=== PATIENT | female | born 1935 | race Two or more races ===

== ENCOUNTER → 2019-04-17 | Outpatient (CLI) | payer OTHER | END | disposition home or self-care (01) | LOC: RAD 13:55 | DX: J45.31 Mild persistent asthma with (acute) exacerbation (principal) ==

== ENCOUNTER 2020-02-21 00:34 | Inpatient (IN) | payer OTHER ==
[~2020-02-21] VITALS: Ht 152.4 cm; Wt 81.6 kg
--- NOTE | 2020-02-21 00:57 | NUR ---
PTE SE RECIBE POR ABDOMINAL PAIN STEFNAI Y VOMITOS REFIERE PTE.
--- NOTE | 2020-02-21 01:54 | NUR ---
PTE ALERTA Y ORIENTADA X3, CON BUEN PATRON RESPIRATORIO Y SIGNOS VITALES ESTABLES, SE CANALIZA EN BRAZO DERECHO PATENTE Y ELIZABET DE EDEMA, SE MAURIZIO MUESTRAS BAJO MEDIDAS ASEPTICAS Y SE ADMINISTRAN MEDICAMENTOS ONEAL ORDENADOS. SE COURTNEY TRANQUILA EN ANGELIQUE CON BARANDAS ELEVADAS Y FRENOS COLOCADOS.
--- NOTE | 2020-02-21 07:46 | NUR ---
SE RECIBE PTE ALERTA Y ORIENTADA POR 3 LA CUAL SE ENUCENTRA CON AREA DE VENOPUNCION PATENTE Y ELIZABET DE EDEMA PTE SE ENCUENTRA EN ESPERA DE CT PO AT 7:53AM.
[2020-02-27] MEDS ORDERED: SURFAK240 M1 PO (12:51)
[2020-02-27] MEDS ORDERED: NORVASC5 MG PO (12:51)
[2020-02-27] MEDS ORDERED: ULTRACET PO (12:51)
[2020-02-27] MEDS ORDERED: KEFLEX500 MG PO (12:51)
[2020-02-27] MEDS ORDERED: LOPRESSOR25 MG PO (12:51)
[2020-02-27] MEDS ORDERED: ZESTRIL40 M1 PO (12:51)
[2020-02-27] MEDS ORDERED: PROTONIX40 MG PO (12:51)
== END 2020-02-27 15:05 | disposition home or self-care (01) | DRG 337 ==
LOC: ER 00:34 → SURH 09:27 → SEC-K 09:27 → SURH 11:50
PROVIDERS: ADMIT Surgery; ATTEND Surgery
PROC: BW21ZZZ Computerized Tomography (CT Scan) of Abdomen and Pelvis (ICD-10-PCS; 2020-02-21)
PROC: B246ZZZ Ultrasonography of Right and Left Heart (ICD-10-PCS; 2020-02-21)
PROC: 4A033R1 Measurement of Arterial Saturation, Peripheral, Percutaneous Approach (ICD-10-PCS; 2020-02-21)
PROC: 3E0F7GC Introduction of Other Therapeutic Substance into Respiratory Tract, Via Natural or Artificial Opening (ICD-10-PCS; 2020-02-21)
PROC: 4A12X4Z Monitoring of Cardiac Electrical Activity, External Approach (ICD-10-PCS; 2020-02-23)
PROC: 0WQF0ZZ Repair Abdominal Wall, Open Approach (ICD-10-PCS; 2020-02-24)
PROC: 0DN80ZZ Release Small Intestine, Open Approach (ICD-10-PCS; principal; 2020-02-24 09:45)
DX: K43.0 Incisional hernia with obstruction, without gangrene (principal); Z20.828 Contact with and (suspected) exposure to other viral communicable diseases; J45.909 Unspecified asthma, uncomplicated; E11.65 Type 2 diabetes mellitus with hyperglycemia; J44.9 Chronic obstructive pulmonary disease, unspecified; Z95.4 Presence of other heart-valve replacement; Z95.1 Presence of aortocoronary bypass graft; K66.0 Peritoneal adhesions (postprocedural) (postinfection); Z79.01 Long term (current) use of anticoagulants

== ENCOUNTER 2021-05-17 10:41 | Outpatient (CLI) | payer OTHER ==
[~2021-05-17 10:41] MED LIST: KEFLEX500 MG PO; LOPRESSOR25 MG PO; NORVASC5 MG PO; PROTONIX40 MG PO; SURFAK240 M1 PO; ULTRACET PO; ZESTRIL40 M1 PO
== END 2021-05-17 10:50 | disposition home or self-care (01) ==
LOC: RAD 10:41
PROVIDERS: ATTEND General Practice
DX: I10 Essential (primary) hypertension (principal); I25.10 Atherosclerotic heart disease of native coronary artery without angina pectoris

== ENCOUNTER 2021-05-18 08:11 | Outpatient (CLI) | payer OTHER | END 2021-05-18 08:18 | disposition home or self-care (01) | LOC: SONOGRAMA 08:11 | PROVIDERS: ATTEND Internal Medicine Cardiovascular Disease | DX: K80.80 Other cholelithiasis without obstruction (principal); R10.84 Generalized abdominal pain ==

== ENCOUNTER 2024-02-24 17:08 | Emergency (ER) | payer OTHER ==
[~2024-02-24] VITALS: Ht 152.4 cm; Wt 70.3 kg
[2024-02-24] MEDS ORDERED: ELIQUIS2.5 MG PO (17:22)
[2024-02-24] MEDS ORDERED: ORPHENADRINE CITRATE 30 MG/ML AMPUL IM STA (20:14)
== END 2024-02-24 22:19 | disposition home or self-care (01) ==
LOC: ER 17:08
DX: S39.82XA Other specified injuries of lower back, initial encounter (principal); W18.39XA Other fall on same level, initial encounter; Y93.89 Activity, other specified; Y92.018 Other place in single-family (private) house as the place of occurrence of the external cause
CPT/HCPCS: 72100; 96372; 99283; J2360

== ENCOUNTER 2024-06-25 05:25 | Inpatient (IN) | payer OTHER ==
[~2024-06-25] VITALS: Ht 152.4 cm; Wt 77.1 kg
[~2024-06-25 05:25] MED LIST changes: +ELIQUIS2.5 MG PO
[2024-06-25] MEDS ORDERED: 0.9 % SODIUM CHLORIDE 1,000 ML IV STA (06:16)
[2024-06-25] MEDS ORDERED: MEPERIDINE HCL/PF 25 MG/ML VIAL IM STA (06:17)
[2024-06-25] MEDS ORDERED: PROMETHAZINE HCL 25 MG/ML AMPUL IM STA (06:17)
[2024-06-25] MEDS ORDERED: ONDANSETRON HCL 2 MG/ML VIAL IV STA (06:18)
[2024-06-25] MEDS ORDERED: FAMOtidine 10 MG/ML (4ML VIAL) IV PUSH STA (06:18)
[2024-06-25] MEDS ORDERED: HYOSCYAMINE SULFATE 0.125 MG TAB.SUBL ONE (06:22)
[2024-06-25] MEDS ORDERED: ONDANSETRON HCL 2 MG/ML VIAL ONE (06:22)
[2024-06-25] MEDS ORDERED: FAMOTIDINE/PF 20 MG/2 ML VIAL ONE ×2 (06:23→15:28)
[2024-06-25] MEDS ORDERED: PROMETHAZINE HCL 25 MG/ML AMPUL ONE (06:23)
[2024-06-25] MEDS ORDERED: HYOSCYAMINE SULFATE 0.125 MG TAB.SUBL SL ONE (06:30)
[2024-06-25 07:02] LABS: HEMATOCRIT 44.2 % (36.0-45.00); HEMOGLOBIN 14.6 g/dL (12.0-15.00); MEAN CELL VOLUME 93.7 fL (80.00-100.00); MEAN CORPUSCULAR HEMOGLOBIN 30.9 pg (27.00-32.0); PLATELET COUNT 260 K/uL (150-450); RED BLOOD COUNT 4.72 M/uL (4.00-6.00); RED CELL DISTRIBUTION WIDTH 13.5 % (11.5-14.5)
[2024-06-25 07:19] LABS: ALBUMIN 3.8 gm/dL (3.4-5.0); BILIRUBIN TOTAL 0.5 mg/dL (0.3-1.2); CALCIUM 9.9 mg/dL (8.5-10.1); CREATININE SERUM 1.07 mg/dL (0.55-1.02); GFR 48.28; GLOBULINA 4.2 G/DL (2.4-3.5); POTASSIUM 3.86 mEq/L (3.5-5.1)
[2024-06-25 07:28] LABS: INR 0.97; PARTIAL THROMBOPLASTIN TIME 26.8 SECONDS (22.0-34.0); PROTHROMBIN TIME 10.6 SECONDS (9.0-11.5)
[2024-06-25] MEDS ORDERED: METHYLPREDNISOLONE SOD SUCC 40 MG VIAL IV ONE (08:45)
[2024-06-25] MEDS ORDERED: METHYLPREDNISOLONE SOD SUCC 40 MG VIAL ONE (08:57)
[2024-06-25 09:48] LABS: PH,URINE 7.5 (5.0-8.0); URINE APPEARANCE Clear; URINE BILIRRUBIN Negative (NEGATIVE); URINE BLOOD Negative; URINE COLOR Yellow; URINE GLUCOSE Negative (NEGATIVE); URINE KETONE Negative (NEGATIVE); URINE LEUKOCYTE Trace; URINE NITRATE Negative
[2024-06-25 09:52] LABS: URINE BACTERIA 210.5 uL (0.0-1933); URINE EPITHELIAL CELLS 13.2 uL (0.0-38.8); URINE RBC 5.8 uL (0.0-20.8); URINE WBC 26.7 uL (0.0-23.2)
[2024-06-25 10:09] LABS: URINE PROTEIN 100 (NEGATIVE)
[2024-06-25] MEDS ORDERED: METRONIDAZOLE/SODIUM CHLORIDE 500 MG/100 ML PIGGYBACK IV ONE ×2 (12:15→12:31)
[2024-06-25] MEDS ORDERED: LIDOCAINE HCL VISCOUS 20MG/ML BLIST 15ML MM ONE (12:31)
[2024-06-25] MEDS ORDERED: PIPERACILLIN/TAZOBACTAM SODIUM 3.375 GM in 0.9 % SODIUM CHLORIDE 100 ML IV SCH (14:40)
[2024-06-25] MEDS ORDERED: FAMOTIDINE/PF 20 MG in 0.9 % SODIUM CHLORIDE 8 ML IV PUSH SCH (14:41)
[2024-06-25] MEDS ORDERED: MEPERIDINE HCL/PF 50 MG/ML VIAL IM PRN (14:45)
[2024-06-25] MEDS ORDERED: INSULIN LISPRO 1,000 UNIT/10 ML UNITS SUBCUTANEO PRN (14:45)
[2024-06-25] MEDS ORDERED: DEXTROSE 50 % IN WATER 0.5 G/ML DISP.SYRIN IV PRN (14:45)
[2024-06-25] MEDS ORDERED: 0.9 % SODIUM CHLORIDE 1,000 ML IV SCH (14:45)
[2024-06-25] MEDS ORDERED: hydrALAZINE HCL 20 MG VIAL IV PRN (15:00)
[2024-06-25] MEDS ORDERED: hydrALAZINE HCL 20 MG VIAL ONE (15:28)
[2024-06-25] MEDS ORDERED: PIPERACILLIN/TAZOBACTAM SODIUM 3.375 GM VIAL IV ONE (15:28)
[2024-06-25 15:55] VITALS: BP 196/90; O2SAT 95
[2024-06-25 16:29] LABS: INR 0.97; PARTIAL THROMBOPLASTIN TIME 26.8 SECONDS (22.0-34.0); PROTHROMBIN TIME 10.6 SECONDS (9.0-11.5)
[2024-06-25 18:25] VITALS: BP 154/70; O2SAT 97
[2024-06-26 08:00] VITALS: BP 152/73; O2SAT 95
[2024-06-26 11:23] VITALS: O2SAT 93
[2024-06-26] MEDS ORDERED: DIATRIZOATE MEGLUMINE, SODIUM 30 ML BOTTLE PO NR (13:15)
[2024-06-26] MEDS ORDERED: MINERAL OIL 133 ML ENEMA RECTAL NR (13:15)
[2024-06-26] MEDS ORDERED: ONDANSETRON HCL 2 MG/ML VIAL IV PRN (13:15)
[2024-06-26 13:46] VITALS: O2SAT 94
[2024-06-26] MEDS ORDERED: MEPERIDINE HCL/PF 25 MG/ML VIAL IM PRN (13:46)
[2024-06-26] MEDS ORDERED: ENOXAPARIN SODIUM 80 MG/0.8 ML SYRINGE SUBCUTANEO SCH (13:46)
[2024-06-26 16:00] VITALS: BP 189/65; O2SAT 96
[2024-06-27] VITALS (9 sets, daily range): BP systolic 125–180; BP diastolic 63–74; O2SAT 91–99
[2024-06-27 10:30] LABS: URINE BACTERIA 646.2 uL (0.0-1933); URINE EPITHELIAL CELLS 11.8 uL (0.0-38.8); URINE RBC 30.9 uL (0.0-20.8); URINE WBC 34.3 uL (0.0-23.2)
[2024-06-27 10:36] LABS: URINE APPEARANCE Clear; URINE BILIRRUBIN Negative (NEGATIVE); URINE BLOOD Negative; URINE COLOR Yellow; URINE GLUCOSE Negative (NEGATIVE); URINE KETONE Trace (NEGATIVE); URINE LEUKOCYTE Trace; URINE NITRATE Negative; URINE PROTEIN Trace (NEGATIVE)
[2024-06-27 11:12] LABS: URINE CAST 0.14 uL (0.0-1.40)
[2024-06-27] MEDS ORDERED: DILTIAZEM HCL 125MG/25ML VIAL IV STA (11:17)
[2024-06-27] MEDS ORDERED: DILTIAZEM HCL 125 MG in 0.9 % SODIUM CHLORIDE 100 ML IV SCH (11:30)
[2024-06-27 11:49] LABS: HEMATOCRIT 45.8 % (36.0-45.00); HEMOGLOBIN 14.7 g/dL (12.0-15.00); MEAN CELL VOLUME 95.5 fL (80.00-100.00); MEAN CORPUSCULAR HEMOGLOBIN 30.7 pg (27.00-32.0); MEAN CORPUSCULAR HGB CONC 32.1 g/dl (32.0-36.0); PLATELET COUNT 251 K/uL (150-450); RED CELL DISTRIBUTION WIDTH 14.1 % (11.5-14.5)
[2024-06-27 12:28] LABS: ALBUMIN 3.5 gm/dL (3.4-5.0); BILIRUBIN TOTAL 0.97 mg/dL (0.3-1.2); CALCIUM 8.8 mg/dL (8.5-10.1); CREATININE SERUM 1.03 mg/dL (0.55-1.02); GFR 50.45; GLOBULINA 3.5 G/DL (2.4-3.5); PHOSPHOROUS 3.1 mg/dL (2.5-4.9); POTASSIUM 3.8 mEq/L (3.5-5.1)
[2024-06-27] MEDS ORDERED: GABAPENTIN 300 MG CAPSULE PO SCH (17:00)
[2024-06-27] MEDS ORDERED: FUROsemide 20 MG/2 ML VIAL IV SCH (17:26)
[2024-06-27 17:38] LABS: ABG PH 7.384 (7.35-7.45); BASE EXCESS -0.6 mmol/l; BICARBONATE 24.5 mmol/l (23-25); SaO2 92.9 %; Tco2 25.8 mmol/l
[2024-06-27 17:39] LABS: allen test SATISFACTORY; o2 21 %; puncture site BRADIAL RIGHT
[2024-06-27] MEDS ORDERED: ACETAMINOPHEN 500 MG GEL..CAP PO SCH (18:00)
[2024-06-28] VITALS (9 sets, daily range): BP systolic 103–144; BP diastolic 55–63; O2SAT 90–98
[2024-06-28] MEDS ORDERED: METOPROLOL TARTRATE 25 MG TABLET PO SCH (11:28)
[2024-06-28] MEDS ORDERED: AMIODARONE HCL 200 MG TABLET PO NR (12:00)
[2024-06-28 13:31] LABS: HEMATOCRIT 43.4 % (36.0-45.00); HEMOGLOBIN 14.6 g/dL (12.0-15.00); MEAN CELL VOLUME 93.2 fL (80.00-100.00); MEAN CORPUSCULAR HEMOGLOBIN 31.5 pg (27.00-32.0); MEAN CORPUSCULAR HGB CONC 33.7 g/dl (32.0-36.0); PLATELET COUNT 235 K/uL (150-450); RED BLOOD COUNT 4.66 M/uL (4.00-6.00); RED CELL DISTRIBUTION WIDTH 14.1 % (11.5-14.5)
[2024-06-29] VITALS (9 sets, daily range): BP systolic 104–170; BP diastolic 67–76; O2SAT 92–98
[2024-06-29] MEDS ORDERED: APIXABAN 2.5 MG TABLET PO SCH (09:00)
[2024-06-29] MEDS ORDERED: AMIODARONE HCL 200 MG TABLET PO SCH (09:00)
[2024-06-30] VITALS (7 sets, daily range): BP systolic 145–155; BP diastolic 66–76; O2SAT 92–96
[2024-07-01] VITALS (21 sets, daily range): BP systolic 123–214; BP diastolic 53–89; O2SAT 94–100
[2024-07-01 06:42] LABS: HEMATOCRIT 41.4 % (36.0-45.00); HEMOGLOBIN 13.7 g/dL (12.0-15.00); MEAN CORPUSCULAR HEMOGLOBIN 31.2 pg (27.00-32.0); MEAN CORPUSCULAR HGB CONC 33.2 g/dl (32.0-36.0); PLATELET COUNT 183 K/uL (150-450); RED BLOOD COUNT 4.41 M/uL (4.00-6.00); RED CELL DISTRIBUTION WIDTH 13.3 % (11.5-14.5)
[2024-07-01 07:12] LABS: CALCIUM 9.1 mg/dL (8.5-10.1); CREATININE SERUM 1.03 mg/dL (0.55-1.02); GFR 50.45; POTASSIUM 4.73 mEq/L (3.5-5.1)
[2024-07-01] MEDS ORDERED: CLEVIDIPINE BUTYRATE 100 ML IV SCH (10:15)
[2024-07-01] MEDS ORDERED: hydrALAZINE HCL 50 MG TABLET PO SCH (13:02)
[2024-07-01] MEDS ORDERED: AMLODIPINE BESYLATE 5 MG TABLET PO SCH (17:00)
[2024-07-02] VITALS (10 sets, daily range): BP systolic 119–152; BP diastolic 53–61; O2SAT 96–100
[2024-07-02] MEDS ORDERED: PIPERACILLIN/TAZOBACTAM SODIUM 3.375 GM VIAL IV ONE (07:44)
[2024-07-02] MEDS ORDERED: SODIUM CHLORIDE 0.45 % 1,000 ML IV SCH (16:45)
[2024-07-02] MEDS ORDERED: PANTOPRAZOLE SODIUM 80 MG in 0.9 % SODIUM CHLORIDE 100 ML IV SCH (18:00)
[2024-07-03] VITALS (9 sets, daily range): BP systolic 115–155; BP diastolic 54–63; O2SAT 91–100
[2024-07-03 06:40] LABS: ALBUMIN 2.6 gm/dL (3.4-5.0); BILIRUBIN TOTAL 0.37 mg/dL (0.3-1.2); CALCIUM 8.5 mg/dL (8.5-10.1); CREATININE SERUM 1.07 mg/dL (0.55-1.02); GFR 48.28; GLOBULINA 2.8 G/DL (2.4-3.5); MAGNESIUM 1.6 mg/dL (1.8-2.4); PHOSPHOROUS 3.3 mg/dL (2.5-4.9); TOTAL PROTEIN 5.4 gm/dL (6.4-8.2)
[2024-07-03 06:46] LABS: POTASSIUM 2.98 mEq/L (3.5-5.1)
[2024-07-03] MEDS ORDERED: hydrALAZINE HCL 50 MG TABLET PO SCH (09:00)
[2024-07-03] MEDS ORDERED: MAGNESIUM SULFATE IN WATER 50 ML IV NR (10:00)
[2024-07-03] MEDS ORDERED: POTASSIUM CHLORIDE IN WATER 40 MEQ/100 ML PIGGYBAG IV SCH (12:00)
[2024-07-03 13:31] LABS: PH,URINE 6.5 (5.0-8.0); URINE APPEARANCE Clear; URINE BILIRRUBIN Negative (NEGATIVE); URINE BLOOD Negative; URINE COLOR Yellow; URINE GLUCOSE Negative (NEGATIVE); URINE KETONE Negative (NEGATIVE); URINE LEUKOCYTE Negative; URINE NITRATE Negative; URINE PROTEIN Negative (NEGATIVE); URINE UROBILINOGEN 0.2 E.U./dl
[2024-07-03 13:32] LABS: URINE BACTERIA 56.1 uL (0.0-1933); URINE EPITHELIAL CELLS 146.9 uL (0.0-38.8)
[2024-07-03 13:38] LABS: URINE RBC 1.4 uL (0.0-20.8)
[2024-07-04] VITALS (10 sets, daily range): BP systolic 140–154; BP diastolic 53–62; O2SAT 94–99
[2024-07-04 06:42] LABS: ALBUMIN 2.4 gm/dL (3.4-5.0); BILIRUBIN TOTAL 0.32 mg/dL (0.3-1.2); CALCIUM 8.1 mg/dL (8.5-10.1); CREATININE SERUM 0.83 mg/dL (0.55-1.02); GFR 64.73; GLOBULINA 2.8 G/DL (2.4-3.5); POTASSIUM 3.73 mEq/L (3.5-5.1); TOTAL PROTEIN 5.2 gm/dL (6.4-8.2)
[2024-07-04] MEDS ORDERED: CHOLESTYRAMINE/ASPARTAME LIGHT 4 G/PKT PACKET PO PRN (13:15)
[2024-07-04] MEDS ORDERED: SODIUM CHLORIDE 0.45 % 1,000 ML IV SCH (13:15)
[2024-07-04] MEDS ORDERED: CHOLESTYRAMINE/ASPARTAME LIGHT 4 G/PKT PACKET PO STA (13:41)
[2024-07-05] VITALS (9 sets, daily range): BP systolic 143–160; BP diastolic 55–60; O2SAT 84–99
[2024-07-05] MEDS ORDERED: DILTIAZEM HCL 125 MG in 0.9 % SODIUM CHLORIDE 100 ML IV SCH (09:45)
[2024-07-05] MEDS ORDERED: METOPROLOL TARTRATE 25 MG TABLET PO SCH (17:00)
[2024-07-05] MEDS ORDERED: ONDANSETRON HCL 2 MG/ML VIAL IV PRN (19:30)
[2024-07-05] MEDS ORDERED: ONDANSETRON HCL 2 MG/ML VIAL IV STA (19:41)
[2024-07-05] MEDS ORDERED: SIMETHICONE 125 MG CAPSULE PO PRN (19:45)
[2024-07-06] VITALS (12 sets, daily range): BP systolic 140–157; BP diastolic 52–61; O2SAT 90–98
[2024-07-06 07:34] LABS: HEMATOCRIT 34.3 % (36.0-45.00); HEMOGLOBIN 11.3 g/dL (12.0-15.00); MEAN CELL VOLUME 95.7 fL (80.00-100.00); MEAN CORPUSCULAR HEMOGLOBIN 31.4 pg (27.00-32.0); MEAN CORPUSCULAR HGB CONC 32.8 g/dl (32.0-36.0); PLATELET COUNT 199 K/uL (150-450); RED BLOOD COUNT 3.58 M/uL (4.00-6.00); RED CELL DISTRIBUTION WIDTH 14.1 % (11.5-14.5)
[2024-07-06 08:19] LABS: CALCIUM 8.6 mg/dL (8.5-10.1); CREATININE SERUM 1.17 mg/dL (0.55-1.02); GFR 43.55; PHOSPHOROUS 3.8 mg/dL (2.5-4.9); POTASSIUM 4.6 mEq/L (3.5-5.1); T4 TOTAL 9.13 UG/DL (4.8-13.9); TSH 0.358 uIU/mL (0.358-3.74)
[2024-07-06] MEDS ORDERED: PANTOPRAZOLE SODIUM 40 MG/VIAL VIAL IV SCH (09:00)
[2024-07-06] MEDS ORDERED: AMIODARONE HCL 200 MG TABLET PO SCH (09:00)
[2024-07-06] MEDS ORDERED: CEFEPIME HCL 2,000 MG VIAL IV STA (11:03)
[2024-07-06] MEDS ORDERED: FLUCONAZOLE IN NACL,ISO-OSM 200 MG/100 ML PIGGYBAG IV STA (11:04)
[2024-07-06] MEDS ORDERED: MEROPENEM 500 MG/VIAL VIAL IV STA (11:47)
[2024-07-06] MEDS ORDERED: LINEZOLID IN DEXTROSE 5% 600 MG/300 ML PIGGYBAG IV STA (11:48)
[2024-07-06] MEDS ORDERED: DIATRIZOATE MEGLUMINE, SODIUM 30 ML BOTTLE PO NR (12:45)
[2024-07-06] MEDS ORDERED: EMOLLIENT COMBINATION NO.92 2.5 OZ BOTTLE TOP SCH (13:00)
[2024-07-06] MEDS ORDERED: EMOLLIENTS 6 OZ BOTTLE TOP SCH (13:00)
[2024-07-06] MEDS ORDERED: CEFEPIME HCL 2,000 MG VIAL IV SCH (17:00)
[2024-07-06] MEDS ORDERED: MEROPENEM 500 MG/VIAL VIAL IV SCH (17:00)
[2024-07-06 20:23] LABS: ABG PH 7.207 (7.35-7.45)
[2024-07-06 20:24] LABS: ABG PO2 53.6 mmHg (80-100); ABG pCO2 71.3 mmHg (35-45); BASE EXCESS -2.2 mmol/l
[2024-07-06 20:25] LABS: BICARBONATE 27.7 mmol/l (23-25); Tco2 29.9 mmol/l; allen test SATISFACTORY; o2 32 %; puncture site RADIAL RIGHT
[2024-07-06 20:26] LABS: SaO2 78.6 %
[2024-07-06] MEDS ORDERED: LEVALBUTEROL HCL 0.63 MG/3 ML SOLUTION IH SCH (21:00)
[2024-07-06] MEDS ORDERED: LINEZOLID IN DEXTROSE 5% 600 MG/300 ML PIGGYBAG IV SCH (21:00)
[2024-07-06 21:46] LABS: ABG PH 7.241 (7.35-7.45); ABG pCO2 64.1 mmHg (35-45)
[2024-07-06 21:47] LABS: ABG PO2 71.8 mmHg (80-100); BICARBONATE 26.9 mmol/l (23-25); SaO2 90.6 %; Tco2 28.9 mmol/l; allen test SATISFACTORY; o2 100 %; puncture site RADIAL LEFT
[2024-07-07 05:50] LABS: ALBUMIN 2.3 gm/dL (3.4-5.0); BILIRUBIN TOTAL 0.5 mg/dL (0.3-1.2); CALCIUM 8.7 mg/dL (8.5-10.1); CREATININE SERUM 1.52 mg/dL (0.55-1.02); GFR 32.2; GLOBULINA 3.9 G/DL (2.4-3.5); POTASSIUM 4.62 mEq/L (3.5-5.1); TOTAL PROTEIN 6.2 gm/dL (6.4-8.2)
[2024-07-07 06:11] LABS: C-REACTIVE PROTEIN 18.2 MG/DL (0.00-0.29)
[2024-07-07] MEDS ORDERED: DIATRIZOATE MEGLUMINE, SODIUM 30 ML BOTTLE PO NR (07:00)
[2024-07-07 07:11] VITALS: BP 160/51; O2SAT 96
[2024-07-07] MEDS ORDERED: FLUCONAZOLE IN NACL,ISO-OSM 200 MG/100 ML PIGGYBAG IV SCH (09:00)
[2024-07-07] MEDS ORDERED: CHLORHEXIDINE GLUCONATE 120 ML BOTTLE TOP ONE (10:05)
[2024-07-07 10:26] LABS: ABG PH 7.261 (7.35-7.45); ABG PO2 91.9 mmHg (80-100); BASE EXCESS -1.9 mmol/l; BICARBONATE 26.5 mmol/l (23-25); SaO2 95.4 %; Tco2 28.3 mmol/l
[2024-07-07 12:17] VITALS: BP 159/51; O2SAT 98
[2024-07-07 12:22] VITALS: BP 147/56
[2024-07-07 13:37] LABS: HEMATOCRIT 32.3 % (36.0-45.00); HEMOGLOBIN 10.4 g/dL (12.0-15.00); MEAN CELL VOLUME 95.6 fL (80.00-100.00); MEAN CORPUSCULAR HEMOGLOBIN 30.6 pg (27.00-32.0); MEAN CORPUSCULAR HGB CONC 32.1 g/dl (32.0-36.0); PLATELET COUNT 146 K/uL (150-450); RED BLOOD COUNT 3.38 M/uL (4.00-6.00); RED CELL DISTRIBUTION WIDTH 14.1 % (11.5-14.5)
[2024-07-07 15:21] VITALS: BP 147/46; BP 148/52; O2SAT 97
[2024-07-07 15:33] LABS: ABG pCO2 60.3 mmHg (35-45); o2 100 %; puncture site RADIAL RIGHT
[2024-07-07 15:34] LABS: allen test SATISFACTORY
[2024-07-07 19:59] VITALS: BP 143/53; O2SAT 96
[2024-07-07 23:38] VITALS: BP 159/50; O2SAT 97
[2024-07-08 06:49] LABS: HEMATOCRIT 31.5 % (36.0-45.00); HEMOGLOBIN 10.3 g/dL (12.0-15.00); MEAN CORPUSCULAR HGB CONC 32.6 g/dl (32.0-36.0); PLATELET COUNT 153 K/uL (150-450); RED BLOOD COUNT 3.32 M/uL (4.00-6.00); RED CELL DISTRIBUTION WIDTH 14.2 % (11.5-14.5)
[2024-07-08 07:14] VITALS: BP 135/78; O2SAT 98
[2024-07-08 07:34] LABS: BILIRUBIN TOTAL 0.43 mg/dL (0.3-1.2); CALCIUM 8.4 mg/dL (8.5-10.1); CREATININE SERUM 1.53 mg/dL (0.55-1.02); GFR 31.96; GLOBULINA 3.8 G/DL (2.4-3.5); MAGNESIUM 2.1 mg/dL (1.8-2.4); PHOSPHOROUS 3.9 mg/dL (2.5-4.9); POTASSIUM 4.25 mEq/L (3.5-5.1); TOTAL PROTEIN 5.8 gm/dL (6.4-8.2)
[2024-07-08] MEDS ORDERED: FUROsemide 20 MG/2 ML VIAL IV SCH (09:00)
[2024-07-08] MEDS ORDERED: DIATRIZOATE MEGLUMINE, SODIUM 30 ML BOTTLE PO NR (12:00)
[2024-07-08 12:09] VITALS: BP 147/57; O2SAT 95
[2024-07-08] MEDS ORDERED: POLYVINYL ALCOHOL 15 ML DROPS OP SCH (13:00)
[2024-07-08 15:06] VITALS: BP 132/67; O2SAT 96
[2024-07-08 15:19] LABS: ABG PH 7.278 (7.35-7.45)
[2024-07-08 15:20] LABS: ABG PO2 138.7 mmHg (80-100); BASE EXCESS -1.4 mmol/l; BICARBONATE 26.5 mmol/l (23-25); SaO2 98.7 %; Tco2 28.3 mmol/l; allen test SATISFACTORY; o2 100 %; puncture site RADIAL LEFT
[2024-07-08] MEDS ORDERED: ACETAMINOPHEN 500 MG GEL..CAP PO PRN (16:30)
[2024-07-08] MEDS ORDERED: PETROLATUM,WHITE 85 GM OINT...G. TOP SCH (17:00)
[2024-07-08 20:00] VITALS: BP 106/64; O2SAT 96
[2024-07-08 23:32] VITALS: BP 106/64; O2SAT 97
[2024-07-09 04:04] VITALS: BP 108/54; O2SAT 97
[2024-07-09 07:42] LABS: HEMATOCRIT 30.4 % (36.0-45.00); HEMOGLOBIN 10.5 g/dL (12.0-15.00); MEAN CELL VOLUME 92.3 fL (80.00-100.00); MEAN CORPUSCULAR HEMOGLOBIN 31.8 pg (27.00-32.0); MEAN CORPUSCULAR HGB CONC 34.4 g/dl (32.0-36.0); PLATELET COUNT 186 K/uL (150-450); RED CELL DISTRIBUTION WIDTH 13.8 % (11.5-14.5)
[2024-07-09 08:14] LABS: CALCIUM 8.7 mg/dL (8.5-10.1); CREATININE SERUM 1.48 mg/dL (0.55-1.02); GFR 33.21; MAGNESIUM 2.2 mg/dL (1.8-2.4); POTASSIUM 4.01 mEq/L (3.5-5.1)
[2024-07-09 08:33] LABS: C-REACTIVE PROTEIN 16.5 MG/DL (0.00-0.29)
[2024-07-09 09:00] LABS: ABG PH 7.276 (7.35-7.45); ABG PO2 125.3 mmHg (80-100); BASE EXCESS -2.3 mmol/l; BICARBONATE 25.5 mmol/l (23-25); SaO2 98.2 %; Tco2 27.2 mmol/l
[2024-07-09] MEDS ORDERED: FUROsemide 20 MG/2 ML VIAL IV SCH (09:00)
[2024-07-09 11:00] LABS: allen test SATISFACTORY; o2 100 %; puncture site RADIAL RIGHT
[2024-07-09 13:53] VITALS: BP 89/50; O2SAT 97
[2024-07-09 16:28] VITALS: BP 120/45; O2SAT 99
[2024-07-09 20:00] VITALS: BP 128/90
[2024-07-09 23:28] VITALS: BP 145/65; O2SAT 100
[2024-07-10 04:00] VITALS: BP 132/90; O2SAT 98
[2024-07-10 07:00] VITALS: BP 147/46; O2SAT 95
[2024-07-10 12:00] VITALS: BP 131/113; BP 133/60; O2SAT 98
[2024-07-10] MEDS ORDERED: 0.9 % SODIUM CHLORIDE 1,000 ML IV SCH (13:00)
[2024-07-10 15:35] VITALS: BP 125/40; O2SAT 100
[2024-07-10 16:01] LABS: CALCIUM 8.3 mg/dL (8.5-10.1); CHOL HDL RATIO 5.1 (0-5.0); CREATININE SERUM 1.54 mg/dL (0.55-1.02); GFR 31.72; POTASSIUM 4.39 mEq/L (3.5-5.1)
[2024-07-10] MEDS ORDERED: AMINO ACIDS 4.25 %/DEXTROSE 5% 1,000 ML PERIFERAL SCH (17:00)
[2024-07-10 20:00] VITALS: BP 118/42; O2SAT 99
[2024-07-10] MEDS ORDERED: FUROsemide 20 MG/2 ML VIAL IV SCH (21:00)
[2024-07-10 23:07] VITALS: BP 132/46; O2SAT 95
[2024-07-11 03:59] VITALS: BP 126/36; O2SAT 97
[2024-07-11 07:14] VITALS: BP 104/62; O2SAT 96
[2024-07-11 07:22] LABS: ALBUMIN 2.1 gm/dL (3.4-5.0); BILIRUBIN TOTAL 0.23 mg/dL (0.3-1.2); CALCIUM 8.1 mg/dL (8.5-10.1); CREATININE SERUM 1.64 mg/dL (0.55-1.02); GFR 29.5; GLOBULINA 3.7 G/DL (2.4-3.5); POTASSIUM 4.16 mEq/L (3.5-5.1); TOTAL PROTEIN 5.8 gm/dL (6.4-8.2)
[2024-07-11 07:47] LABS: ABG PO2 67.3 mmHg (80-100); BASE EXCESS -5.3 mmol/l; BICARBONATE 26.5 mmol/l (23-25); SaO2 83.6 %; Tco2 29.1 mmol/l
[2024-07-11 11:12] LABS: ABG PH 7.112 (7.35-7.45)
[2024-07-11 11:13] LABS: allen test SATISFACTORY; o2 100 %; puncture site RADIAL LEFT
[2024-07-11] MEDS ORDERED: METHYLPREDNISOLONE SOD SUCC 40 MG VIAL IV NR (12:00)
[2024-07-11 12:01] VITALS: BP 111/86; O2SAT 78; O2SAT 84
[2024-07-11 15:20] VITALS: BP 132/41; O2SAT 81
[2024-07-11] MEDS ORDERED: METHYLPREDNISOLONE SOD SUCC 40 MG VIAL IV SCH (21:00)
== END 2024-07-11 16:31 | disposition expired | DRG 388 ==
LOC: ER 05:25 → SURH 16:42 → MEDI 07-01 10:16 → ICU 07-06 23:26 → O/R 07-08 13:26 → ICU 07-08 13:28
PROVIDERS: General Practice; Internal Medicine; Internal Medicine Geriatric Medicine; Internal Medicine Infectious Disease; Student in an Organized Health Care Education/Training Program; ADMIT Specialist; ATTEND Specialist
PROC: 0D9670Z Drainage of Stomach with Drainage Device, Via Natural or Artificial Opening (ICD-10-PCS; principal; 2024-06-25)
PROC: BW21YZZ Computerized Tomography (CT Scan) of Abdomen and Pelvis using Other Contrast (ICD-10-PCS; 2024-06-25)
PROC: BU4CZZZ Ultrasonography of Uterus and Ovaries (ICD-10-PCS; 2024-06-26)
PROC: B246ZZZ Ultrasonography of Right and Left Heart (ICD-10-PCS; 2024-06-26)
PROC: 4A12X4Z Monitoring of Cardiac Electrical Activity, External Approach (ICD-10-PCS; 2024-06-26)
PROC: B020ZZZ Computerized Tomography (CT Scan) of Brain (ICD-10-PCS; 2024-06-27)
PROC: 02HV33Z Insertion of Infusion Device into Superior Vena Cava, Percutaneous Approach (ICD-10-PCS; 2024-06-27)
PROC: 3E04328 Introduction of Oxazolidinones into Central Vein, Percutaneous Approach (ICD-10-PCS; 2024-06-27)
PROC: BW21ZZZ Computerized Tomography (CT Scan) of Abdomen and Pelvis (ICD-10-PCS; 2024-07-06)
PROC: BB24ZZZ Computerized Tomography (CT Scan) of Bilateral Lungs (ICD-10-PCS; 2024-07-07)
PROC: 3E0F7GC Introduction of Other Therapeutic Substance into Respiratory Tract, Via Natural or Artificial Opening (ICD-10-PCS; 2024-07-07)
PROC: 5A09457 Assistance with Respiratory Ventilation, 24-96 Consecutive Hours, Continuous Positive Airway Pressure (ICD-10-PCS; 2024-07-07)
DX: K56.51 Intestinal adhesions [bands], with partial obstruction (principal); G92.8 Other toxic encephalopathy; J69.0 Pneumonitis due to inhalation of food and vomit; J96.02 Acute respiratory failure with hypercapnia; N17.9 Acute kidney failure, unspecified; N39.0 Urinary tract infection, site not specified; I13.0 Hypertensive heart and chronic kidney disease with heart failure and stage 1 through stage 4 chronic kidney disease, or unspecified chronic kidney disease; I25.810 Atherosclerosis of coronary artery bypass graft(s) without angina pectoris; I48.20 Chronic atrial fibrillation, unspecified; Z94.0 Kidney transplant status; E87.1 Hypo-osmolality and hyponatremia; I50.9 Heart failure, unspecified; E86.0 Dehydration; K56.7 Ileus, unspecified; E11.649 Type 2 diabetes mellitus with hypoglycemia without coma; D72.829 Elevated white blood cell count, unspecified; R33.9 Retention of urine, unspecified; E87.6 Hypokalemia; R41.0 Disorientation, unspecified; I13.10 Hypertensive heart and chronic kidney disease without heart failure, with stage 1 through stage 4 chronic kidney disease, or unspecified chronic kidney disease; E11.22 Type 2 diabetes mellitus with diabetic chronic kidney disease; N18.32 Chronic kidney disease, stage 3b; D27.0 Benign neoplasm of right ovary; E78.5 Hyperlipidemia, unspecified; B96.1 Klebsiella pneumoniae [K. pneumoniae] as the cause of diseases classified elsewhere; Z95.1 Presence of aortocoronary bypass graft; Z79.84 Long term (current) use of oral hypoglycemic drugs